=== PATIENT | male | born 1935 | race Caucasian/White ===

== ENCOUNTER 2019-11-20 04:57 | Outpatient (CLI) | payer MEDICARE, BC ==
[~2019-11-20 04:57] MED LIST: LOSA50TA3 PO; MULT-1085 PO; ROSU40TA PO
== END 2019-11-20 23:59 | disposition home or self-care (01) ==
LOC: DIABETIC 04:57
PROVIDERS: ATTEND Specialist
DX: E11.9 Type 2 diabetes mellitus without complications (principal)
CPT/HCPCS: G0108